=== PATIENT | female | born 1935 | race Caucasian/White ===

== ENCOUNTER 2016-11-10 14:27 | Inpatient (IN) | payer OTHER ==
[~2016-11-10] VITALS: Ht 167.6 cm; Wt 63.5 kg
[~2016-11-10 14:27] MED LIST: ACET-2165 PO; DOCU-144 PO; DULR10 RC; ESCI10TA PO; LEVO5TAB13 PO; LOPE2CAP PO; LORA1TAB PO; MELA2.5T PO; SER25 PO; TRAM50TA92 PO; VITA1CAP PO
[2016-11-10 14:30] VITALS: BP 146/67; PULSE 66; RESP 18; TEMP 97.8; O2SAT 96
--- NOTE | 2016-11-10 14:36 | NUR ---
Pt placed to ER hallway on stretcher awaiting ER bed placement.
--- NOTE | 2016-11-10 14:48 | NUR ---
placed in bed 3
--- NOTE | 2016-11-10 15:00 | NUR ---
Pt refusing tx.attempted to express the importance of evaluation.pt refusing requesting staff to call daughter.
--- NOTE | 2016-11-10 15:05 | NUR ---
Pt's daughter called to inform of pt's mother's refusal of tx. message left at home phone and cell called. Pt maintains no pain and tx not wanted. Pt has no acute resp distress noted. Pt appears to AAOx3. Pt verbalized understanding of need to wait and is cooperative to wait for ED staff to get in contact w/family. Continuing to monitor pt for changes.Dr. Vaca aware of delay in care.
--- NOTE | 2016-11-10 15:30 | NUR ---
pt. expresses that she does not want to be here, requesting for us to call the daughter or her residence for family to pick her up, MD aware, attempts made to call daughter, left voicemail
--- NOTE | 2016-11-10 16:30 | NUR ---
spoke to pt.'s daughter Abbey, as per daughter she is [place] hour away in traffic, willing to come fiber picker her mother, states that she will call [facility] to arrange for transportation or will be presenting to er to fiber picker the pt. eta [phone]
--- NOTE | 2016-11-10 17:30 | NUR ---
pt. ambulated to bathroom slow and steady, no distress, states she feels fine, does not know why she needs to wait here, plan of care explained by talon domínguez and dr. jones BALDWIN
--- NOTE | 2016-11-10 17:42 | NUR ---
slow steady ambulation in hallway, ambulations tolerated well
--- NOTE | 2016-11-10 17:45 | NUR ---
Pt's daughter arrived at bedside.Pt's refusal explained to family. Family expressed concern and are willing to convince pt to stay for evaluation. Dr. Vaca called to speak with family and pt for need for evaluation regarding chief complaint.
--- NOTE | 2016-11-10 17:57 | NUR ---
as per conversations between dr. goldman and pt.'s family pt. agrees to stay and procceed with treatment plan
--- NOTE | 2016-11-10 17:58 | NUR ---
lab at bedside for blood draw
[2016-11-10 18:09] LABS: BASOPHILS % (AUTO) 0.6 % (0.0-2.0); EOSINOPHILS # (AUTO) 0.1 K/uL (0.0-0.4); EOSINOPHILS % (AUTO) 2.4 % (0.0-4.0); HEMATOCRIT 40.1 % (36-48); HEMOGLOBIN 13.2 g/dL (12.0-16.0); LYMPHOCYTES # (AUTO) 1.8 K/uL (1.0-5.5); LYMPHOCYTES % (AUTO) 29.2 % (20.5-51.5); MEAN CORPUSCULAR HEMOGLOBIN 30 pg (27-31); MEAN CORPUSCULAR HGB CONC 33 % (32-36); MEAN CORPUSCULAR VOLUME 91 fL (79.0-98.0); MONOCYTES # (AUTO) 0.4 K/uL (0.0-1.0); MONOCYTES % (AUTO) 7.1 % (1.7-9.3); NEUTROPHILS # (AUTO) 3.8 K/uL (1.8-7.7); NEUTROPHILS % (AUTO) 60.7 % (40.0-70.0); PLATELET COUNT (AUTO) 232 K/uL (130-430); RED BLOOD CELL COUNT(AUTO) 4.39 MIL/uL (4.2-6.2); RED CELL DISTRIBUTION WIDTH 13.1 % (9.0-15.0); WHITE BLOOD COUNT (AUTO) 6.1 K/uL (4.8-10.8)
[2016-11-10 18:22] LABS: CALCIUM 8.9 mg/dL (8.4-11.0); CHLORIDE 103 mmol/L (98-107); GLUCOSE 104 mg/dL (70-99); POTASSIUM 4.5 mmol/L (3.5-5.1); SODIUM SERUM 136 mmol/L (136-145); UREA NITROGEN, BLOOD 21 mg/dL (8-21)
[2016-11-10 18:27] LABS: ALANINE AMINOTRANSFERASE 26 U/L (12-78); ALBUMIN 3.9 g/dL (3.4-4.8); ASPARTATE AMINOTRANSFERASE 16 U/L (10-37); INR 0.9 (0.8-1.2); PROTHROMBIN TIME 10.2 SECS (9.5-12.5); TOTAL BILIRUBIN 0.3 mg/dL (0.0-1.0); TOTAL PROTEIN, SERUM 7.4 g/dL (6.4-8.3)
[2016-11-10 18:28] LABS: ANION GAP < 3 (5-15)
[2016-11-10 19:27] LABS: BILIRUBIN,URINE NEGATIVE (NEGATIVE); BLOOD, URINE 1+ (NEGATIVE); CLARITY/URINE CLEAR (CLEAR); COLOR,URINE YELLOW (YELLOW); GLUCOSE,URINE NEGATIVE (NEGATIVE); KETONES,URINE NEGATIVE (NEGATIVE); LEUKOCYTE ESTERASE ,URINE NEGATIVE (NEGATIVE); NITRITE, URINE NEGATIVE (NEGATIVE); PH,URINE 7.5 (5.0-8.0); PROTEIN URINE NEGATIVE (NEGATIVE); UROBILINOGEN,URINE 0.2 (0.2-1.0)
[2016-11-10] MEDS ORDERED: ASPIRIN 325 MG TABLET PO ONE (19:30)
[2016-11-10 19:43] LABS: BACTERIA,URINE RARE /HPF (None Seen); MUCUS,URINE None Seen /LPF (None Seen); WBC,URINE 0-3 /HPF (0-3)
[2016-11-10] MEDS ORDERED: MELA3TAB37 PO (20:00)
[2016-11-10] MEDS ORDERED: TRAM50TA92 PO (20:01)
[2016-11-10] MEDS ORDERED: *LOVENOX 1MG/KG Q12H/PHARMACY XX SCH (21:00)
--- NOTE | 2016-11-10 21:11 | NUR ---
Patient will be admitted to [facility]. Admitted to TELE unit. Will go to room 100-A. Belongings list completed. Summary report printed. Report given to GERDA MARTINEZ.
--- NOTE | 2016-11-10 21:14 | NUR ---
ADMISSION NOTE Received patient from ER via reg, received report from GERDA Live. Patient admitted with diagnosis of Myocardial Infarction. Patient oriented to hospital routine, call light, toileting and safety-patient verbalized understanding.
[2016-11-10 21:19] VITALS: BP_SYST 160; BP_SYST 182; BP_DIAS 77; BP_DIAS 88; PULSE 66; RESP 18; TEMP 97.5; O2SAT 99
--- NOTE | 2016-11-10 21:30 | NUR ---
DIAPER Late entry due to pt. care. Pt. requesting to keep her diaper/underwear on. Educated pt. on risks associated with diaper use. Pt. refusing to remove because she said she sometimes "leaks." Pt. also requested peripad.
[2016-11-10] MEDS ORDERED: ENOXAPARIN SODIUM 60 MG/0.6 ML SYRINGE SUBCUT ONE (22:00)
--- NOTE | 2016-11-10 23:38 | NUR ---
Consultation Paged Reason for consultation: AK Was consult called: Yes Person who was notified: Ellie Consulting Physician: Porter Hutchins Turn Operator Specialty: Associate Account Manager
--- NOTE | 2016-11-10 23:47 | NUR ---
2D ECCHO Tech at bedside for 2D eccho.
[2016-11-11] VITALS: BP_SYST 141; BP_DIAS 47; BP_DIAS 76; PULSE 54; PULSE 91; RESP 15; RESP 16; TEMP 96.9; TEMP 98.5; O2SAT 97
--- NOTE | 2016-11-11 00:05 | NUR ---
DR. SUSANA Coleman is here making rounds.
[2016-11-11] MEDS ORDERED: ACETAMINOPHEN 325 MG TABLET PO PRN (00:15)
[2016-11-11] MEDS ORDERED: BISACODYL 10 MG/SUPPOSITORY RC PRN (00:15)
[2016-11-11] MEDS ORDERED: traMADol HCL HCL 50 MG TABLET (ULTRAM) PO PRN (00:15)
[2016-11-11] MEDS ORDERED: LORazepam 1 MG TABLET PO PRN (00:15)
[2016-11-11] MEDS ORDERED: LOPERAMIDE HCL 2 MG CAPSULE PO PRN (00:15)
--- NOTE | 2016-11-11 01:24 | NUR ---
ROUNDS Pt. is resting quietly in bed with eyes closed. No s/s of acute distress. Safety measures in place. Bed alarm on. Call light to right hand. Will continue to monitor.
--- NOTE | 2016-11-11 02:13 | NUR ---
ROUNDS Pt. is resting quietly in bed with eyes closed. No s/s of acute distress. Safety measures in place. Call light to right hand side, within reach. Bed alarm on. Will continue to monitor.
--- NOTE | 2016-11-11 02:28 | NUR ---
paged for Dr Carrero, dialed . s/w Ellie, Dr Carrero is on-call for Dr Carrasco.
--- NOTE | 2016-11-11 02:30 | NUR ---
CRITICAL TROPONIN/REPORTED TO WEIGHT LOSS SALES CONSULTANT Lore from lab called to report critical troponin result of 0.099. Reported to Dr. Carrero who is covering for Dr. Carrasco. Dr. Carrero gave no new orders at this time.
--- NOTE | 2016-11-11 03:33 | NUR ---
ASSISTED PT. TO BATHROOM Assisted pt. to bathroom to void. Pt.'s gait is unsteady and needs nurse assist. Pt. tolerated well. Pt. denies any other needs at this time. Safety measures in place. Bed alarm turned back on. Encouraged pt. to use call light for needs and reeducated on how to use call light. Will continue to monitor.
[2016-11-11 03:51] VITALS: BP 129/62; PULSE 73; RESP 18; TEMP 98; O2SAT 97
--- NOTE | 2016-11-11 06:29 | NUR ---
CLOSING NOTES All needs met throughout shift. Pt. is resting quietly in bed with eyes closed. Respirations are even and unlabored with visible chest rise and fall. No significant changes. Safety measures maintained throughout shift. Bed alarm on. Call light to right hand. Will endorse care to oncoming day shift nurse.
[2016-11-11] MEDS ORDERED: QUEtiapine FUMARATE 25 MG TABLET PO PRN (07:00)
--- NOTE | 2016-11-11 07:35 | NUR ---
INITIAL NOTES RECEIVED PATIENT ON BED AWAKE.BREATHING EVEN AND UNLABORED.IV SALINE LOCK INTACT AND PATENT;NO SIGNS AND SYMPTOMS OF INFILTRATION.SAFETY AND FALL PRECAUTIONS IN PLACE.CALL LIGHT WITHIN REACH
[2016-11-11 07:56] VITALS: BP 135/73; PULSE 70; RESP 18; TEMP 98.1; O2SAT 95
[2016-11-11] MEDS ORDERED: ENOXAPARIN SODIUM 60 MG/0.6 ML SYRINGE SUBCUT SCH (09:00)
[2016-11-11] MEDS ORDERED: traMADol HCL HCL 50 MG TABLET (ULTRAM) PO SCH (09:00)
[2016-11-11] MEDS ORDERED: CITALOPRAM HYDROBROMIDE 20 MG TABLET PO SCH (09:00)
[2016-11-11] MEDS ORDERED: DOCUSATE SODIUM 100 MG CAPSULE PO SCH (09:00)
[2016-11-11] MEDS ORDERED: ASPIRIN 81 MG TAB.CHEW PO SCH (09:00)
[2016-11-11] MEDS ORDERED: METOPROLOL TARTRATE 25 MG TABLET PO SCH (09:00)
--- NOTE | 2016-11-11 10:53 | NUR ---
Social Service Note: Pt referred to social science manager by nursing; pt's dtr requesting to speak to social work manager. [facility] placed phone call to pt's dtr, Abbey ([phone]). Pt's dtr states that pt has been at [facility]; plan is for pt to return to [facility]. Pt's dtr has questions regarding pt's insurance and exterminator helper plans. [facility] has made referral for pt to be screened by [facility]. [facility] has sent an email Jered to contact pt's dtr. [facility] also provided pt's dtr with contact information to [facility]: [phone]; to assist with possible placement in the further. [facility] explained to pt's dtr different levels of care: SNF, CUSTODIAL, [facility], and [facility]. NETWORKING TECHNICIAN will remain available for support and will follow up as needed.
--- NOTE | 2016-11-11 11:19 | NUR ---
NOTES CALLED BACK;INFORMED REGARDING PATIENT'S TROPONIN=0.082;SAID TO NOTIFY DR. MIJARES IF OKAY TO DISCHARGE PATIENT
[2016-11-11 11:32] VITALS: BP 148/78; PULSE 66; RESP 19; TEMP 97; O2SAT 94
--- NOTE | 2016-11-11 11:33 | NUR ---
NOTES PAGED DR. MIJARES;AWAITING FOR CALL BACK
--- NOTE | 2016-11-11 11:35 | NUR ---
NOTES DR. MIJARES CALLED BACK;INFORMED REGARDING PATIENT'S TROPONIN =0.082 SAID OKAY TO DISCHARGE TO DISCHARGE PATIENT;CARRIED OUT
[2016-11-11] MEDS ORDERED: ASPI-1063 PO (12:28)
[2016-11-11] MEDS ORDERED: METO25TA6 PO (12:29)
[2016-11-11 12:42] VITALS: BP 148/78; PULSE 66; RESP 19; TEMP 97; O2SAT 94
--- NOTE | 2016-11-11 12:50 | NUR ---
NOTES CALLED PATIENT'S DAUGHTER;SPOKE WITH VANESSA;INFORMED REGARDING PATIENT'S DISCHARGE ORDER SAID SHE WILL COME TO SUPERVISOR CORE SHOP THE PATIENT
--- NOTE | 2016-11-11 14:15 | NUR ---
NOTES PATIENT CLAIMS HER MAGAZINES ARE MISSING AND THAT SOMEONE STOLE IT.EXPLAINED TO PATIENT THAT SHE HAS NO MAGAZINES WHEN SHE ARRIVED AT THE FACILITY BUT STILL INSISTED THAT SOMEONE STOLE IT.TRIED TO DIVERT PATIENT'S ATTENTION BY OFFERING OTHER MAGAZINES AVAILABLE IN THE FACILITY BUT REFUSED.ASSISTED PATIENT BACK TO HER ROOM AND MONITORED CLOSELY
--- NOTE | 2016-11-11 15:00 | NUR ---
NOTES SEEN PATIENT WANDERING IN THE HALLWAY VERY CONFUSED;ASSISTED BACK TO HER ROOM AND INFORMED THAT HER DAUGHTER IS ON THE WAY TO PICK HER UP SO SHE CAN GO BACK TO HER HOME;AGREED AND WENT BACK TO HER BED.NO SIGNS AND SYMPTOMS OF DISTRESS NOTED
--- NOTE | 2016-11-11 15:20 | NUR ---
NOTES CHECKED PATIENT;SITTING AT THE EDGE OF HER BED CALM AND RELAX.NO ACUTE DISTRESS
--- NOTE | 2016-11-11 16:05 | NUR ---
NOTES PATIENT'S DAUGHTER CAME TO SCRAP CRUSHER PATIENT.REQUESTED TO TALK TO DR. MIJARES;ASSISTED AND ABLE TO TALK TO DR. MIJARES
--- NOTE | 2016-11-11 16:18 | NUR ---
D/C Patient Patient given medication reconciliation form and D/C instructions. Exit Care provided. Patient verbalized understanding. MD discussed with patient the results and treatment provided. Ambulatory with steady gait for discharge to home. Patient in stable condition, ID band removed. IV catheter removed, intact and dressing applied, no active bleeding. Rx of ASPIRIN,LOPRESSOR given. Patient educated on pain management. All belongings sent with patient.
--- NOTE | 2016-11-13 14:15 | NUR ---
Discharge Follow Up Phone Call [employer] NET DEVELOPER phoned [facility] dementia unit where patient resides, , and spoke with patient's nurse. Patient is a little more confused than normal but seems to be normalizing. Patient saw her PCP at [facility] today. There were no questions or concerns.
== END 2016-11-11 16:18 | DRG 313 ==
LOC: SED 14:27 → STU 20:47
PROVIDERS: ADMIT Internal Medicine Hospice and Palliative Medicine; ATTEND Internal Medicine Hospice and Palliative Medicine
DX: R07.89 Other chest pain (principal); I10 Essential (primary) hypertension; F32.9 Major depressive disorder, single episode, unspecified; F02.80 Dementia in other diseases classified elsewhere, unspecified severity, without behavioral disturbance, psychotic disturbance, mood disturbance, and anxiety; G30.9 Alzheimer's disease, unspecified; Z90.710 Acquired absence of both cervix and uterus; Z88.6 Allergy status to analgesic agent; Z88.5 Allergy status to narcotic agent; Z79.899 Other long term (current) drug therapy
CPT/HCPCS: 36415; 80053; 80061; 81000-TC; 81025; 83880; 84484; 85025; 85610-TC; 85730-TC; 93005; 93306; 99285; J1650

== ENCOUNTER 2017-05-20 09:58 | Emergency (ER) | payer OTHER ==
[~2017-05-20] VITALS: Ht 167.6 cm; Wt 68.0 kg
[~2017-05-20 09:58] MED LIST changes: +ASPI-1063 PO; -MELA2.5T PO; +MELA3TAB37 PO; +METO25TA6 PO
[2017-05-20 10:00] VITALS: BP_SYST 160
--- NOTE | 2017-05-20 10:00 | NUR ---
Arrived via BLS ambulance after fall in bathroom which the patient is poorly able to describe. Patient C/O left shoulder, left elbow, right elbow, right lateral foot pain. Patient demonstrated AROM of all effected areas, no crepitis. Patient to ER bed 4 to gown for evaluation. Side rails up. Report given to Mick LORENZ.
--- NOTE | 2017-05-20 10:15 | NUR ---
ER at bedside examining patient.
--- NOTE | 2017-05-20 11:01 | NUR ---
Patient transported to radiology via WC, accompanied by RAD STAFF.
--- NOTE | 2017-05-20 12:10 | NUR ---
Pt ambulated to nurse station, respirations even and unlabored.
--- NOTE | 2017-05-20 12:14 | NUR ---
Pt ambulating w/staedy gait back and forth to nursing station.
--- NOTE | 2017-05-20 12:30 | NUR ---
Patient to be discharged to [facility]. Patient belongings inventoried and will be sent with patient. Report called to BUFFING WHEEL FORMER MACHINE at receiving facility.
--- NOTE | 2017-05-20 13:40 | NUR ---
Patient discharged to [facility] via van from facility. Patient given written and verbal discharge instructions. Patient given opportunity to ask questions which were answered. Patient ID band removed. No Rx were sent home.
[2017-05-20 13:42] VITALS: BP_SYST 160
== END 2017-05-20 13:42 | disposition home or self-care (01) ==
LOC: SED 09:58
DX: S40.012A Contusion of left shoulder, initial encounter (principal); G47.00 Insomnia, unspecified; Z79.899 Other long term (current) drug therapy; Z88.6 Allergy status to analgesic agent; W01.0XXA Fall on same level from slipping, tripping and stumbling without subsequent striking against object, initial encounter; Y93.01 Activity, walking, marching and hiking; Y92.89 Other specified places as the place of occurrence of the external cause; Y99.8 Other external cause status
CPT/HCPCS: 73030; 73080; 99284; J7030